=== PATIENT | male | born 1930 | race Caucasian/White ===

== ENCOUNTER 2016-05-07 19:12 | Inpatient (IN) | payer MEDICARE, BC ==
--- NOTE | ~2016-05-07 | CO ---
Unit #: [id number] #: [id number] Patient: LUIS DESOUZA [id number] [address] [place], [place] [address] [id number] I MR#: [id number] NAME: LUIS DESOUZA ROOM: 215 Age: 85 Sex: M Admission Date: 05/07/2016 : 1930 Attending Physician: Scot Quigley M.D. Primary Care Physician: Margaret Diop Aprn Consultation Date: 05/10/2016 CONSULTATION REPORT HISTORY OF PRESENT ILLNESS The patient is an 85-year-old male who has suffered with severe back pain following picking up an object several days ago. He has been admitted for immobility syndrome. 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 Over the years, he required a G-tube for enteral nutrition. PAST MEDICAL HISTORY As per chart. HOME MEDICATIONS As per chart. REVIEW OF SYSTEMS A 14-point review of systems is positive for severe back pain. The patient does not ambulate independently. PHYSICAL EXAMINATION He is awake, alert and oriented to person, place and time. Mood and affect are appropriate. He does not have any focal neurologic deficits in his lower extremities. He does have tenderness to percussion of the spinous processes in the lower spine. There are no lacerations or abrasions. DIAGNOSTIC STUDIES LABORATORY: X-rays and MRI scan demonstrate a fracture of L2. On the MRI scan, this appears to be acute to subacute. IMPRESSION Osteoporotic compression fracture L2. RECOMMENDATIONS Kyphoplasty. The patient and family are made aware of the risks and difficulty of predicting a specific outcome. Some of the risks would include extravasation of the methacrylate that would necessitate additional surgery such as laminectomy. He could also suffer nerve damage or paralysis. These are rare with kyphoplasty but it can occur. He could suffer junctional fractures or develop other problems. The goal of this procedure is to hopefully alleviate the pain enough to mobilize the patient with physical therapy assistance. Unit #: [id number] #: [id number] Patient: LUIS DESOUZA Dictated by... Costa Boyce M.D. DANIEL/shobha TD: 05/10/2016 21:05 JOB #: [id number] CONSULTATION REPORT X Costa Boyce MD CONSULTATION REPORT
--- NOTE | ~2016-05-07 | A ---
[facility] Nutrition Therapy DATE: 05/08/16 Patient: LUIS DESOUZA Physician: JAVIER Address: [address] [place] [address] Room/Bed: [address] [place] [address], Zip: [place] [address] Admit Date: 05/07/16 Date of : 31 Height: 5 10 Weight: 135 61.23 NUTRITIONAL ASSESSMENT: REASON: Enteral nutrition assessment 85 yo male admitted for L2 compression fracture, immobility PMH: Head and neck cancer s/p radiation and PEG placed in 2014, hypothyroid, hyponatremia, cholecystectomy, appendectomy, PUD Anthropometrics: Ht: 70" Wt: 61.2 kg BMI: 19.4 IBWL 75.4 kg, 81% IBW Labs: Cl- 94 Na+ 129 Accuchecks 242 Meds: KCl, zofran, NaCl, synthroid (via PEG) I/O & Bowel function: 788/400, last BM date not noted, diarrhea noted Skin Integrity: PEG LLQ Dry skin- generalized Edema: none noted Estimated Nutrition Needs: 7067-9644 kcals (35-40 kcals/kg) 92-110 grams protein (1.5-1.8 grams/kg) Fluid needs consistent with kcals or per MD orders Assessment: Chart reviewed, events noted. Pt had a PEG placed in 2014 due to head and neck cancer. Pt is NPO. RN reports that the pt is receiving his home enteral nutrition regimen with one can TwoCal HN bolus five times daily with 8 oz warm water before and after each can. this meets the pt's increased nutrient needs by providing 2375 kcals/ 100 grams protein/ 830 mL free H20. MD is in room with pt at this time. RN reports that the pt is very particular with his enteral nutrition regimen. Based on previous admission weights, the pt has gained ~21# since December 2014. Pt is still underweight at 81% of his IBW. Dx: Underweight RT PMH AEB enteral nutrition, 81% IBW. Intervention: 1. TwoCal HN bolus enteral nutrition Monitoring, Evaluation and Goals: 1. Enteral nutrition; provide >80% goal volume x 24 hrs 2. Labs; WNL [facility] Nutrition Therapy DATE: 05/08/16 Patient: LUIS DESOUZA Physician: JAVIER Address: [address] [place] [address] Room/Bed: [address] [place] [address], Zip: [place] [address] Admit Date: 05/07/16 Date of : 31 Height: 5 10 Weight: 135 61.23 3. Weight; prevent weight loss, promote weight gain 4. Skin; prevent breakdown Recommendations: 1. Continue the pt's home enteral nutrition regimen as tolerated, which is meeting his increased nutrient needs. One can TwoCal HN five times daily provides: 2375 kcals/ 100 grams protein/ 830 mL free H20 2. Optimize the pt's bowel regimen, as diarrhea was noted. Pt is at mild nutritional risk. RD will follow hospital course per protocol. Respectfully, NEREIDA MITCHELL RD, LD [facility] cc: client file
--- NOTE | ~2016-05-07 | HP ---
Unit #: [id number] #: [id number] Patient: LUIS DESOUZA [id number] [address] [place], [place] [address] [id number] I MR#: [id number] NAME: LUIS DESOUZA ROOM: 215 Age: 85 Sex: M Admission Date: 05/07/2016 : 1930 Attending Physician: Scot Quigley M.D. Referring Physician: Margaret Diop Aprn Primary Care Physician: Margaret Diop Aprn HISTORY AND PHYSICAL CHIEF COMPLAINT Back pain. DISCUSSION This is an 85-year-old gentleman who has a history of head and neck positive, status post radical neck and radiation in 1988, hypothyroid, history of hyponatremia, history of status post PEG. He is NPO, currently on tube feeds. He presented to emergency room today with chief complaint of having back pain. He said he bent over three days ago to sweet pickle maker something on the floor, heard a pop in the back. Since then, he has been having constant back pain which is radiating to his right leg and patient eventually came to the ER. On workup, on x-ray patient was found to have compression fracture of L2 and eventually being admitted for further workup and evaluation. He has been having immobility since this happened, unable to ambulate secondary to severe pain but denies any other complaints. No chest pain, no fever, no chills, no other complaint. PAST MEDICAL HISTORY 1. History of head and neck cancer, status post radical neck dissection and radiation in 1988. 2. History of hypothyroid. 3. History of hyponatremia. 4. History of PEG, on tube feeds. 5. Appendectomy. 6. Cholecystectomy. 7. History of peptic ulcer disease requiring surgery in 1957. ALLERGIES No known drug allergies. MEDICATIONS Medications from home: 1. Synthroid 25 mcg daily. 2. Aspirin 325 daily. 3. TwoCal HN five cans daily. FAMILY HISTORY Noncontributory. SOCIAL HISTORY The patient lives with his son in a halfway home. He stopped smoking in 1974. Does not drink alcohol. REVIEW OF SYSTEMS Unit #: [id number] #: [id number] Patient: LUIS DESOUZA CONSTITUTIONAL: No fever, no chills. CARDIOVASCULAR: No chest pain, no diaphoresis. PULMONARY: No cough, no wheezing. GI: No nausea, no vomiting, no abdominal pain. MUSCULOSKELETAL: Reports back pain, constant, sharp, radiating to right leg. PHYSICAL EXAMINATION GENERAL: Elderly male lying in the bed comfortably, currently not in any distress. He is alert, awake, oriented x3. CURRENT VITAL SIGNS: Temp is 97.7, heart rate 89, respiratory rate 18, blood pressure 147/74. Oxygen 100% on room air. HEENT: Pupils equal, reactive to light and accommodation. Head is normocephalic, atraumatic. NECK: Supple. No JVD. Scar noted on the left side. CHEST: Clear to auscultation, no rhonchi, no wheezing. HEART: S1, S2. Regular rate and rhythm. No murmur. ABDOMEN: Soft, nontender, nondistended. Bowel sounds positive. PEG tube is positive. EXTREMITIES: Inspection normal. No cyanosis, no clubbing, no edema. NEURO: He is alert, awake, oriented. His speech is somewhat (1) . He is moving his extremities. Upper extremity movement normal. Power is normal. Lower extremity - unable to do power secondary to his pain. DIAGNOSTIC STUDIES LABORATORY: UA is negative. Sodium 127, potassium 4.9, chloride 94, glucose 93, BUN 20, creatinine 0.7, white count 3.1, hemoglobin 10, hematocrit 33, platelets 212. IMAGING: X-ray of lumbar spine shows compression fracture of L2. ASSESSMENT AND PLAN 1. Compression fracture of L2: Will ask spine surgery, Dr. Boyce, to evaluate. 2. Immobility syndrome secondary to fracture of L2, possibly needs reassessment. 3. History of PEG, on tube feeds. 4. History of head and neck cancer, status post radical neck dissection and radiation. 5. Hypothyroid. 6. History of peptic ulcer disease in the past. 7. DVT prophylaxis: Will place patient on Lovenox. Dictated by Ruddy Lindsay TD: 05/08/2016 08:46 JOB #: [id number] Unit #: [id number] #: [id number] Patient: LUIS DESOUZA HISTORY AND PHYSICAL X X HISTORY AND PHYSICAL
--- NOTE | ~2016-05-07 | OR ---
Unit #: [id number] #: [id number] Patient: LUIS DESOUZA [id number] [address] [place], [place] [address] [id number] I MR#: [id number] NAME: LUIS DESOUZA ROOM: [facility] Date of Procedure: 05/11/2016 Admission Date: 05/07/2016 Surgeon: Costa Boyce M.D. : 1930 Attending Physician: Scot Quigley M.D. Referring Physician: Margaret Diop Aprn Primary Care Physician: Margaret Diop Aprn PROCEDURE OPERATIVE NOTE PREOPERATIVE DIAGNOSES 1. Osteoporosis. 2. L2 compression fracture. POSTOPERATIVE DIAGNOSES 1. Osteoporosis. 2. L2 compression fracture. PROCEDURE PERFORMED L2 kyphoplasty and biopsy ([id number]). ANESTHESIA Stepan Shipman, general endotracheal. SPECIMENS L2 to pathology. COMPLICATIONS None. FINDINGS None unanticipated. INDICATIONS The patient is an 85-year-old male who suffers with laryngeal cancer. He suffered severe pain in his back when he was bending over. He was hospitalized for immobility. A MRI revealed that he had a subacute fracture of L2. For that reason, kyphoplasty was recommended to hopefully facilitate his convalescence and mobility. The patient was apprised of the risks and complications and the difficulty predicting a specific outcome. DESCRIPTION OF PROCEDURE Patient was taken to surgery. After successful anesthesia, he was placed prone on two well-padded bolsters. The back was prepped and draped in usual sterile fashion. Two small stab incisions were made after the L2 pedicles were localized under biplanar fluoroscopy. Working cannulas were advanced within the vertebral body of L2. A trocar was placed to obtain biopsy from both sides and sent as one aggregate specimen labeled L2. Next, balloons were placed. These were inflated under biplanar fluoroscopy and had good position and fill within the vertebral body of L2. These were then deflated and removed and methacrylate was slowly Unit #: [id number] #: [id number] Patient: LUIS DESOUZA injected under live lateral fluoroscopic imaging on both sides. It had good position and fill within the vertebral body of L2 and was adequately anterior. It was allowed to cure and harden whereupon the working cannulas removed. Final images demonstrated the position of the cement within the vertebral body and were saved for permanent copy. The wounds were closed with Dermabond. Telfa and Tegaderm dressing. The patient was turned supine, extubated, and taken stable to recovery. All sponge, needle, and instrument counts were correct x3. Dictated by... Ruddy Ruiz/lizy TD: 05/12/2016 07:06 JOB #: [id number] PROCEDURE OPERATIVE NOTE X Costa Boyce MD X PROCEDURE OPERATIVE NOTE
--- NOTE | ~2016-05-07 | CR181 ---
[facility] A Service of [facility] & [facility] RADIOLOGY TEXT RESULTS PATIENT: LUIS DESOUZA LOCATION: [facility] : 31 UNIT #: [id number] AGE: [address]: Scot Quigley MD SEX: M ORDER DR: [id number] [facility] [address] [facility]. [place], [place] [address] [id number] I MR#: [id number] Acc #: [id number] NAME: LUIS DESOUZA : 1930 SEX: M STUDY DATE/TIME: 05/11/2016 19:24 UNIT: [facility] ROOM: [facility] [place][note 2] STUDY DESCRIPTION: CR Lumbar Spine 2 or 3 Views Attending Physician: Scot Quigley M.D. Referring Physician: Margaret Diop Aprn Ordering Physician: Scot Quigley M.D. Primary Care Physician: Margaret Diop Aprn MEDICAL IMAGING REPORT This report is preliminary unless electronic signature is present EXAM Fluoroscopy during lumbar spine procedure 05/11/2016 HISTORY Fluoroscopy during lumbar kyphoplasty. FINDINGS C-arm fluoroscopy was provided by x-ray technologist in the OR during lumbar kyphoplasty. Fluoroscopy time 0.1 minute and 20 seconds. 2 fluoroscopic images were recorded for documentation purposes. Please see operative note for details. Dictated by... Raul Perales M.D. THIS IS AN ELECTRONICALLY VERIFIED REPORT Raul Perales M.D. at 05/12/2016 4:00 PM Caity TD: 05/12/2016 10:07 JOB #: [id number] MEDICAL IMAGING REPORT COPY
--- NOTE | ~2016-05-07 | DS ---
Unit #: [id number] #: [id number] Patient: LUIS DESOUZA [id number] [address] [place], [place] [address] [id number] I MR#: [id number] NAME: LUIS DESOUZA [facility] Age: 85 Sex: M Admission Date: 05/07/2016 : 1930 Discharge Date: Attending Physician: Scot Quigley M.D. Referring Physician: Margaret Diop Aprn Primary Care Physician: Margaret Diop Aprn DISCHARGE SUMMARY DISCHARGE DIAGNOSES 1. Compression fracture at L2. 2. Severe pain with immobility syndrome secondary to the acute fracture at L2. The patient was seen in consultation by Dr. Boyce who performed a kyphoplasty. 3. History of percutaneous gastrostomy tube on tube feeds. 4. History of head and neck cancer status post radical neck dissection and radiation. 5. Hypothyroidism. Thyroid-stimulating hormone was slightly elevated when assessed at 8.63 likely due to fall and acute pain. Free T3 was 2.5 and free T4 was 0.84. He will continue with his levothyroxine and follow up with primary care physician to have repeat thyroid-stimulating hormone performed within four to six weeks. MANAGER OPERATIONAL Dr. Boyce of Spine Surgery. PROCEDURE The patient will have kyphoplasty on 05/11/16. IMAGING 1. X-ray of C-spine on 05/07/16. Impression: Question new mild L2 compression fracture when compared to the CT images from 04/26/16 with perhaps about 10 to 20% height loss. 2. X-ray of pelvis. Impression: Lower lumbar spinal scoliosis and degenerative change. No acute abnormality. 3. MRI of lumbar spine without contrast. Impression: There are degenerative changes of canal and foraminal narrowing, detailed above. There is also a subacute to early chronic L2 upper endplate compression deformity mostly central with about 25 to perhaps 30% height loss centrally but no canal compromise. Again, this appears to be subacute to early chronic in age given the degree of marrow edema. No other acute or chronic fracture is seen. Incidentally noted fatty infiltration of the filum without evidence of cord tethering. On the day of discharge, the patient's labs were glucose 90, BUN 16, creatinine 0.7, sodium 133, potassium 5.4, chloride 100, CO2 30, calcium 8.2, magnesium 2.1. CBC with WBC of 3.3, RBC 3.39, hemoglobin 10.9, hematocrit 32.2, MCV 94.8, MCH 32.1, MCHC 33.8, RDW 13.8, platelets 181, MVV 8.4. HOSPITAL COURSE The patient is an 85-year-old male who has a past medical history of head Unit #: [id number] #: [id number] Patient: LUIS DESOUZA and neck cancer status post radical neck and radiation in 1988, hypothyroidism, history of hyponatremia, history of PEG placement and on tube feedings. The patient has been n.p.o. with tube feedings only. The patient presented to the emergency room on the day of admission due to back pain. He bent over three days prior to admission to pickle pumper something on the floor, heard a pop in his neck. Since then, he has been having constant back pain which is radiating to his leg and, therefore, presented to the emergency department for further workup where he was found to have an x-ray that had a L2 compression fracture and was admitted for L2 compression fracture with severe pain and immobility syndrome. The patient was seen in consultation with Dr. Boyce, spinal surgeon, who, after ordering and reviewing MRI of the lumbar spine had recommended kyphoplasty. This procedure will be planned on 05/11/16. Due to patient's deconditioning from the immobility, the patient and his son are requesting for rehab so the patient can regain function and will be discharged back home to live with his son. DISCHARGE CONDITION Stable. DISCHARGE FOLLOWUP Follow up with primary care physician within one to two weeks. ACTIVITIES As tolerated with physical and occupational therapy, to resume to prior level with ambulating every day. DISCHARGE DIET The patient is n.p.o. with PEG feeding of one eight ounce can of Narinder Hitesh mixed with eight ounce of warm water to be bolused feed at 7, 10, one, 4 and 7. That is from 7 to 7, bolused every three hours. The patient may have a syringe of free fluid flushed before and after each feeding. Check for residual. Remain upright above 30 degrees angle after each feeding. DISCHARGE MEDICINE 1. Aspirin 325 mg orally daily. 2. Levothyroxine 25 mcg orally every morning. 3. Bisacodyl for constipation one 5 mg tablet per PEG daily as needed for constipation. 4. The patient can have [place] 5/325 mg one tablet every six hours as needed for pain. We will be discharging patient with three days total until he can be assessed by medical insurance clerk at nursing facility. The patient will be discharged to [facility] or [facility]. Dictated by... Lauren Griffiths PA-C for Ruddy Tanner/ronaldo TD: 05/11/2016 08:55 JOB #: [id number] Unit #: [id number] #: [id number] Patient: LUIS DESOUZA DISCHARGE SUMMARY X X DISCHARGE SUMMARY
--- NOTE | ~2016-05-07 | CO ---
Unit #: [id number] #: [id number] Patient: LUIS DESOUZA [id number] [address] [place], [place] [address] [id number] I MR#: [id number] NAME: LUIS DESOUZA ROOM: 215 Age: 85 Sex: M Admission Date: 05/07/2016 : 1930 Attending Physician: Scot Quigley M.D. Primary Care Physician: Margaret Diop Aprn Requesting Physician: Ambrose Parsons M.D. Consultation Date: 05/10/2016 CONSULTATION REPORT CHIEF COMPLAINT Severe back pain. HISTORY OF PRESENT ILLNESS The patient is an 85-year-old male who several days ago bent over. He felt a crack in his lower back and incapacitating pain since that time. He has been brought to the emergency room for hospitalization for immobility and for further workup. PAST MEDICAL HISTORY Past medical history is significant for laryngeal cancer. The patient required multiple radiation treatments. Eventually he could not swallow. He had a bypass G-tube placed several months ago through which he obtains his enteral nutrition. MEDICATIONS Medications are as per chart. PAST SURGICAL HISTORY Noncontributory. FAMILY HISTORY Noncontributory. REVIEW OF SYSTEMS A 14-point review of systems is negative except for the above complaints, namely severe back pain. PHYSICAL EXAMINATION The patient is a nonambulator. He does not have any focal neurologic deficits in his upper or lower extremities. Percussion of the spinous processes does not elicit any tenderness. There are no lacerations or abrasions. DIAGNOSTIC STUDIES IMAGING: X-rays and MRI scan demonstrate an L2 compression fracture. On the MRI there is edema consistent with at least a subacute fracture. CLINICAL IMPRESSION 1. Osteoporosis. 2. Osteoporotic compression fracture L2. RECOMMENDATIONS Unit #: [id number] #: [id number] Patient: LUIS DESOUZA Recommendations are for kyphoplasty. Purpose of the kyphoplasty is to hopefully alleviate the sharp fracture pain and mobilize the patient with physical therapy. The risks of complications include methacrylate extrusion such that would necessitate surgical removal or he could suffer neurologic problems including paralysis. No specific outcome is made. He could suffer junctional fractures that require additional treatment. Dictated by... Costa Boyce M.D. DANIEL/daniel TD: 05/10/2016 21:47 JOB #: [id number] CONSULTATION REPORT X Costa Boyce MD CONSULTATION REPORT
--- NOTE | ~2016-05-07 | CR181 ---
[facility] A Service of [facility] & [facility] RADIOLOGY TEXT RESULTS PATIENT: LUIS DESOUZA LOCATION: A 215 : 31 UNIT #: [id number] AGE: [address]: Scot Quigley MD SEX: M ORDER DR: [id number] [facility] [address] [place], [place] [address] [id number] I MR#: [id number] Acc #: [id number] NAME: LUIS DESOUZA : 1930 SEX: M STUDY DATE/TIME: 05/07/2016 19:54 UNIT: [facility] ROOM: [facility] STUDY DESCRIPTION: CR Lumbar Spine 2 or 3 Views Attending Physician: Ambrose Parsons M.D. Referring Physician: Margaret Diop Aprn Ordering Physician: Mick Hendrix D.O. Primary Care Physician: Margaret Diop Aprn MEDICAL IMAGING REPORT This report is preliminary unless electronic signature is present EXAM Lumbar spine 3 views COMPARISON None HISTORY Low back pain for about a week, getting worse past 3 days. FINDINGS There is osteopenia and degenerative change. There may be an L2 compression fracture with about 10% - 20% height loss that may be new since 04/26/2016. Otherwise negative. IMPRESSION Question new mild L2 compression fracture when compared to the CT images from 04/26/2016 with perhaps about 10% to 20% height loss. Dictated by... Jose Ramon Solis M.D. THIS IS AN ELECTRONICALLY VERIFIED REPORT Jose Ramon Solis M.D. at 05/10/2016 12:27 PM TEV/jan TD: 05/08/2016 05:48 JOB #: [id number] MEDICAL IMAGING REPORT COPY
--- NOTE | ~2016-05-07 | MR113 ---
[facility] A Service of [facility] & [facility] RADIOLOGY TEXT RESULTS PATIENT: LUIS DESOUZA LOCATION: C2A : 31 UNIT #: [id number] AGE: [address]: Scot Quigley MD SEX: M ORDER DR: [id number] [facility] [address] [place], [place] [address] [id number] I MR#: [id number] Acc #: [id number] NAME: LUIS DESOUZA : 1930 SEX: M STUDY DATE/TIME: 05/09/2016 13:14 UNIT: C2A ROOM: [facility] STUDY DESCRIPTION: MR Lumbar Wo Contrast Attending Physician: Scot Quigley M.D. Referring Physician: Margaret Diop Aprn Ordering Physician: Costa Boyce M.D. Primary Care Physician: Margaret Diop Aprn MRI CENTER REPORT This report is preliminary unless electronic signature is present. EXAM Lumbar spine MRI without contrast. DATE 05/09/2016 COMPARISON Images from a CT abdomen and pelvis dated 04/26/2016. CLINICAL HISTORY Back pain and pain radiating to right leg. FINDINGS There is a moderate lumbar scoliosis, but no discrete anterolisthesis or retrolisthesis. There is an L2 upper endplate compression deformity, subacute to early chronic, with about 25% to 30% height loss centrally. No other recent-appearing fracture or marrow edema is seen. The distal cord and conus are normal in position and appearance. The paraspinous tissues are unremarkable. At L1-2, there is a slight disc bulge but no canal stenosis and borderline left and no right foraminal stenosis. At L2-3, there is a disc bulge and no more than borderline if any canal stenosis but there is moderate left and mild right foraminal stenosis. At L3-4, there is disc and endplate change and facet arthropathy and mild canal stenosis and mild left and moderate right foraminal stenosis. At 4-5, there is disc and endplate change and borderline to mild canal stenosis and mild or [id number] left and moderate or moderate to severe right foraminal stenosis. [facility] A Service of [facility] & [facility] RADIOLOGY TEXT RESULTS PATIENT: LUIS DESOUZA LOCATION: C2A 215-01 : [birth year] UNIT #: [id number] AGE: [address]: Scot Quigley MD SEX: M ORDER DR: At 5-1, there is no canal stenosis or foraminal stenosis. 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 No discrete mass is seen and tip of the conus is again normal in position. IMPRESSION 1. There are degenerative changes of the canal and foraminal narrowing detailed above. There is also a subacute to early chronic L2 upper endplate compression deformity, mostly central with about 25% to perhaps 30% height loss centrally but no canal compromise. Again, this appears to be subacute to early chronic in age, given the degree of marrow edema. No other acute or chronic fracture is seen. 2. Incidentally noted fatty infiltration of the filum without evidence of cord tethering. Dictated by... Jose Ramon Solis M.D. THIS IS AN ELECTRONICALLY VERIFIED REPORT Jose Ramon Solis M.D. at 05/10/2016 12:26 PM SHELBY/robert TD: 05/10/2016 09:44 JOB #: [id number] MRI CENTER REPORT COPY
--- NOTE | ~2016-05-07 | CR206 ---
[facility] A Service of [facility] RADIOLOGY TEXT RESULTS PATIENT: LUIS DESOUZA LOCATION: C2A 215 : 31 UNIT #: [id number] AGE: [address]: Scot Quigley MD SEX: M ORDER DR: [id number] [facility] [address] [place], [place] [address] [id number] MR#: [id number] Acc #: [id number] NAME: LUIS DESOUZA : 1930 SEX: M STUDY DATE/TIME: 05/07/2016 20:38 UNIT: [facility] ROOM: [facility] [place][note 2] STUDY DESCRIPTION: CR Pelvis 1 or 2 Views Attending Physician: Scot Quigley M.D. Referring Physician: Margaret Diop Aprn Ordering Physician: Mick Hendrix D.O. Primary Care Physician: Margaret Diop Aprn MEDICAL IMAGING REPORT This report is preliminary unless electronic signature is present EXAM Pelvis 2 views AP 05/07/2016 HISTORY Right hip pain for 3 days. FINDINGS There is lower lumbar degenerative change and scoliosis, but there is no fracture. The pelvis itself appears normal as do both hips. IMPRESSION Lower lumbar spinal scoliosis and degenerative change. No acute abnormality. Dictated by... Jose Ramon Solis M.D. THIS IS AN ELECTRONICALLY VERIFIED REPORT Jose Ramon Solis M.D. at 05/10/2016 12:27 PM TEV/belle TD: 05/08/2016 07:57 JOB #: [id number] MEDICAL IMAGING REPORT COPY
[~2016-05-07 19:12] MED LIST: ASPIRIN81 MG GT; MINERALS; MULTIVITAMINS1 EAC2 GT; ROBITUSSIN; THYROID PILL; TUBE FEEDING
[2016-05-07 19:48] LABS: BASOPHIL% 0.6 % (0-2.5); EOSINOPHIL# 0.1 X10e3 (0-0.7); EOSINOPHIL% 2.4 % (0.0-7.0); HEMOGLOBIN 10.8 gm/dL (13.0-16.0); LYMPHOCYTE# 0.8 X10e3 (1.0-3.5); LYMPHOCYTE% 27.5 % (17.0-45.0); MEAN CELL VOLUME 94.7 FL (83-96); MEAN CORPUSCULAR HEMOGLOBIN 31.1 PG (28-34); MEAN CORPUSCULAR HGB CONC 32.8 g/dL (30-36); MONOCYTE# 0.6 X10e3 (0-1.0); MONOCYTE% 19.6 % (3.0-12.0); NEUTROPHIL# 1.5 X10e3 (1.5-7.1); NEUTROPHIL% 49.9 % (40-75); PLATELET COUNT 212 X10e3 (140-420); RED BLOOD COUNT 3.49 X10e (3.90-5.60); RED CELL DISTRIBUTION WIDTH 13.7 % (11.0-15.5); WHITE BLOOD COUNT 3.1 X10e3 (4.0-10.5)
[2016-05-07 19:57] LABS: DIFF IND NO
[2016-05-07 20:10] LABS: BLOOD UREA NITROGEN 20 mg/dL (9-23); BUN/CREATININE RATIO 28.57; CALCIUM SERUM 8.4 mg/dL (8.4-10.2); CARBON DIOXIDE 30 mmol/L (22-31); CHLORIDE 94 mmol/L (100-111); CREATININE SERUM 0.7 mg/dL (0.6-1.4); GLOM FILT RATE Estimated ABOVE60 mL/min (>60); GLUCOSE FASTING 93 mg/dL (70-110); POTASSIUM 4.9 mmol/L (3.5-5.1); SODIUM 127 mmol/L (135-145)
[2016-05-07 20:17] LABS: URINE SOURCE CLEAN CATCH
[2016-05-07 20:24] LABS: URINE APPEARANCE CLEAR; URINE BILIRUBIN NEG (NEG); URINE BLOOD NEG (NEG); URINE COLOR YELLOW; URINE GLUCOSE NEG (NEG); URINE KETONE NEG (NEG); URINE LEUKOCYTE ESTERASE NEG (NEG); URINE NITRATE NEG (NEG); URINE PH 7.5 (5-8); URINE PROTEIN NEG (NEG)
[2016-05-07 20:28] LABS: CULTURE INDICATED? NO
[2016-05-07] MEDS ORDERED: LEVOTHYROXINE25 MCG PO (20:36)
[2016-05-07] MEDS ORDERED: BAYER ASPIRIN325 M1 PO (20:36)
[2016-05-08 05:08] LABS: BASOPHIL% 0.7 % (0-2.5); EOSINOPHIL# 0.1 X10e3 (0-0.7); EOSINOPHIL% 1.8 % (0.0-7.0); HEMATOCRIT 30.3 % (38.0-50.0); HEMOGLOBIN 10.2 gm/dL (13.0-16.0); LYMPHOCYTE# 0.6 X10e3 (1.0-3.5); LYMPHOCYTE% 17.4 % (17.0-45.0); MEAN CELL VOLUME 94.7 FL (83-96); MEAN CORPUSCULAR HEMOGLOBIN 31.9 PG (28-34); MEAN CORPUSCULAR HGB CONC 33.7 g/dL (30-36); MEAN PLATELET VOLUME 8.8 FL (6.5-11.5); MONOCYTE# 0.6 X10e3 (0-1.0); NEUTROPHIL# 2.4 X10e3 (1.5-7.1); NEUTROPHIL% 65.1 % (40-75); PLATELET COUNT 188 X10e3 (140-420); RED CELL DISTRIBUTION WIDTH 13.5 % (11.0-15.5); WHITE BLOOD COUNT 3.7 X10e3 (4.0-10.5)
[2016-05-08 05:14] LABS: DIFF IND NO
[2016-05-08 07:16] LABS: BLOOD UREA NITROGEN 20 mg/dL (9-23); BUN/CREATININE RATIO 28.57; CALCIUM SERUM 8.4 mg/dL (8.4-10.2); CARBON DIOXIDE 29 mmol/L (22-31); CHLORIDE 94 mmol/L (100-111); CREATININE SERUM 0.7 mg/dL (0.6-1.4); GLOM FILT RATE Estimated ABOVE60 mL/min (>60); GLUCOSE FASTING 83 mg/dL (70-110); POTASSIUM 4.6 mmol/L (3.5-5.1); SODIUM 129 mmol/L (135-145)
[2016-05-09 12:24] LABS: PARTIAL THROMBOPLASTIN TIME 29.8 SECONDS (23.5-31.3); PROTHROMBIN TIME (PATIENT) 10.3 SECONDS (9.6-11.5)
[2016-05-11 05:22] LABS: HEMATOCRIT 32.2 % (38.0-50.0); HEMOGLOBIN 10.9 gm/dL (13.0-16.0); MEAN CELL VOLUME 94.8 FL (83-96); MEAN CORPUSCULAR HEMOGLOBIN 32.1 PG (28-34); MEAN CORPUSCULAR HGB CONC 33.8 g/dL (30-36); MEAN PLATELET VOLUME 8.4 FL (6.5-11.5); RED BLOOD COUNT 3.39 X10e (3.90-5.60); RED CELL DISTRIBUTION WIDTH 13.8 % (11.0-15.5); WHITE BLOOD COUNT 3.3 X10e3 (4.0-10.5)
[2016-05-11 06:12] LABS: BLOOD UREA NITROGEN 16 mg/dL (9-23); BUN/CREATININE RATIO 22.85; CALCIUM SERUM 8.2 mg/dL (8.4-10.2); CARBON DIOXIDE 30 mmol/L (22-31); CHLORIDE 100 mmol/L (100-111); CREATININE SERUM 0.7 mg/dL (0.6-1.4); GLOM FILT RATE Estimated ABOVE60 mL/min (>60); GLUCOSE FASTING 90 mg/dL (70-110); MAGNESIUM 2.1 mg/dL (1.6-3.0); POTASSIUM 5.4 mmol/L (3.5-5.1); SODIUM 133 mmol/L (135-145)
[2016-05-11 06:32] LABS: FREE THYROXIN (T4) 0.84 ng/dL (0.58-1.64)
[2016-05-11 06:33] LABS: FREE T3 2.5 pg/mL (2.5-3.9)
[2016-05-12 08:34] LABS: BLOOD UREA NITROGEN 23 mg/dL (9-23); BUN/CREATININE RATIO 28.75; CALCIUM SERUM 8.1 mg/dL (8.4-10.2); CARBON DIOXIDE 27 mmol/L (22-31); CHLORIDE 94 mmol/L (100-111); CREATININE SERUM 0.8 mg/dL (0.6-1.4); GLOM FILT RATE Estimated ABOVE60 mL/min (>60); GLUCOSE FASTING 224 mg/dL (70-110); POTASSIUM 4.7 mmol/L (3.5-5.1); SODIUM 127 mmol/L (135-145)
== END 2016-05-12 13:50 | DRG 478 ==
LOC: CED 19:12 → CEDOF 21:00 → C2A 22:13
PROVIDERS: Emergency Medicine; Internal Medicine; Orthopaedic Surgery Orthopaedic Surgery of the Spine
PROC: 0QB03ZX Excision of Lumbar Vertebra, Percutaneous Approach, Diagnostic (ICD-10-PCS; 2016-05-11)
PROC: 0QU03JZ Supplement Lumbar Vertebra with Synthetic Substitute, Percutaneous Approach (ICD-10-PCS; 2016-05-11)
PROC: 0QS03ZZ Reposition Lumbar Vertebra, Percutaneous Approach (ICD-10-PCS; principal; 2016-05-11 17:00)
DX: M80.08XA Age-related osteoporosis with current pathological fracture, vertebra(e), initial encounter for fracture (principal); E87.1 Hypo-osmolality and hyponatremia; E87.5 Hyperkalemia; Z93.1 Gastrostomy status; M62.3 Immobility syndrome (paraplegic); E03.9 Hypothyroidism, unspecified; Z87.11 Personal history of peptic ulcer disease; Z85.89 Personal history of malignant neoplasm of other organs and systems
CPT/HCPCS: 36415; 72100; 72148; 72170; 76000; 80048; 81003; 82947; 83735; 84439; 84443; 84481; 85025; 85027; 85610; 85730; 88305; 88311; 88313; 88323; 88341; 88342; 88368; 88369; 96374; 96375; 97116; 97162; 99285; C1713; G8978-GP; G8979-GP; J0690; J1170; J1650; J1885; J2270; J2405; J3010